=== PATIENT | female | born 1965 | race Caucasian/White ===

== ENCOUNTER 2019-03-28 12:44 | Inpatient (IN) | payer MEDICARE, OTHER ==
[~2019-03-28] VITALS: Ht 170.2 cm; Wt 63.5 kg
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
[2019-03-28 13:53] LABS: BASOPHILS # (AUTO) 0.1 /CMM (0.0-0.2); BASOPHILS % (AUTO) 0.6 % (0.0-2.0); EOSINOPHILS % (AUTO) 2.1 % (0.0-6.0); HEMATOCRIT 40 % (33-45); HEMOGLOBIN 13.4 g/dL (11.5-14.8); LYMPHOCYTES # (AUTO) 2.3 /CMM (0.8-4.8); LYMPHOCYTES % (AUTO) 20.8 % (20.0-44.0); MEAN CORPUSCULAR HGB CONC 33 g/dl (31.0-36.0); MEAN CORPUSCULAR VOLUME 85 fL (82-100); MONOCYTES # (AUTO) 0.7 /CMM (0.1-1.30); MONOCYTES % (AUTO) 6.6 % (2.0-12.0); NEUTROPHILS # (AUTO) 7.8 /CMM (1.8-8.9); NEUTROPHILS % (AUTO) 69.9 % (43.0-81.0); PLATELET COUNT (AUTO) 400 /CMM (150-450); WHITE BLOOD COUNT (AUTO) 11.2 K/uL (4.3-11.0)
[2019-03-28] MEDS ORDERED: HALOPERIDOL LACTATE INJ 5 MG/ML VIAL ONE (13:53)
[2019-03-28] MEDS ORDERED: LORAZEPAM INJ 2 MG/ML VIAL ONE (13:54)
[2019-03-28 13:58] LABS: CARBON DIOXIDE 26 mmol/L (21-32); CHLORIDE 101 mmol/L (98-107); CREATININE 0.7 mg/dL (0.6-1.3); GLUCOSE 111 mg/dL (74-106); SODIUM SERUM 137 mmol/L (136-145); UREA NITROGEN, BLOOD 13 mg/dL (7-18)
[2019-03-28] MEDS ORDERED: LORAZEPAM INJ 2 MG/ML VIAL IM ONE (14:00)
[2019-03-28] MEDS ORDERED: HALOPERIDOL LACTATE INJ 5 MG/ML VIAL IM ONE (14:00)
--- NOTE | 2019-03-28 14:00 | NUR ---
PT SCREAMING, MEDICATED PER PA'S ORDER, PT CINTIA WELL. WILL CONT TO MONITOR. EARNESTINE @ BS.
[2019-03-28 14:04] LABS: ALANINE AMINOTRANSFERASE 20 U/L (12-78); ALCOHOL, BLOOD < 3 mg/dL (0-0); ALKALINE PHOSPHATASE 84 U/L (46-116); ASPARTATE AMINOTRANSFERASE 22 U/L (15-37); BILIRUBIN,DIRECT 0.1 mg/dL (0.0-0.2); BILIRUBIN,TOTAL 0.6 mg/dL (0.2-1.0); TOTAL PROTEIN, SERUM 7.9 g/dL (6.4-8.2)
[2019-03-28 14:05] LABS: ACETAMINOPHEN 0 ug/ml (10-30); SALICYLATE 2.3 mg/dL (2.8-20.0)
[2019-03-28] MEDS ORDERED: POTASSIUM CHLORIDE 20 MEQ TAB.PRT.SR PO ONE ×2 (15:00→15:14)
[2019-03-28 15:18] LABS: APPEARANCE,URINE CLEAR (CLEAR); BILIRUBIN,URINE NEGATIVE (NEGATIVE); BLOOD, URINE NEGATIVE Ery/uL (NEGATIVE); COLOR,URINE YELLOW (YELLOW); KETONES,URINE NEGATIVE (NEGATIVE); LEUKOCYTE ESTERASE ,URINE SMALL (NEGATIVE); NITRITE, URINE POSITIVE (NEGATIVE); PROTEIN,URINE NEGATIVE (NEGATIVE); UGLUCOSE NEGATIVE (NEGATIVE); UROBILINOGEN,URINE 0.2 EU/dL (0.2)
[2019-03-28 15:50] LABS: BACTERIA,URINE Moderate /HPF (None Seen); RBC,URINE 0-2 /HPF (0-2); SQUAMOUS EPITHELIAL CELL,UR Few /HPF (None Seen)
[2019-03-28] MEDS ORDERED: CEPHALEXIN MONOHYDRATE 500 MG CAPSULE PO ONE ×2 (16:00→16:07)
--- NOTE | 2019-03-28 16:10 | NUR ---
MEDICATED PER PA'S ORDER, PT CINTIA WELL. PT CALM & COOPERATIVE & ANSWERING QUESTIONS. DENIES ANY DISCOMFORT @ THIS TIME & WILL CONT TO MONITOR.
--- NOTE | 2019-03-28 17:19 | NUR ---
REPORT GIVEN TO GAVIN GALAVIZ FOR VESTA.
[2019-03-28 17:47] VITALS: BP 129/93
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
[2019-03-28] MEDS ORDERED: BLOOD SUGAR DIAGNOSTIC 1 EACH STRIP IN ONE (18:30)
[2019-03-28] MEDS ORDERED: MAG HYDROX/AL HYDROX/SIMETH 30 ML UDC PO PRN (18:30)
--- NOTE | 2019-03-28 19:10 | NUR ---
RP GPS OPENING NOTE REPORT RECIEVED FROM GUILLAUME ALONSO. PATIENT IN BED IN NO APPARENT DISTRESS. PATIENT HAS BEEN UNCOOPERATINVE SINCE BEING ADMITTED. BREATHING EVEN AND UNLABORED. PATIENT APPEARS SLEEPY AROUSABLE TO VOICE AND TOUCH. DENIES SUICIDE IDEATION AND HOMICIDAL IDEATION AT THIS TIME. PT STATES,"I JUST WANT TO BE LEFT ALONE." BED DOWN LOCKED WILL CONTINUE TO MONITOR FOR SAFETY.
[2019-03-28 20:01] VITALS: BP 129/81
--- NOTE | 2019-03-28 20:20 | NUR ---
FAMILY NOTIFICATION ATTEMPTED TO CONTACT NUMBER LISTED ON FACE SHEET BUT NO ONE ANSWERED. [phone] ASKED PATIENT IF THERE WAS ANYONE SHE WANTED TO NOTIFY ABOUT HER ADMISSION TO GPS STATES "I DON'T HAVE ANYONE TO NOTIFY."
--- NOTE | 2019-03-29 05:49 | NUR ---
COMPLETION OF ADMISSION ASSESSMENT PATIENT AWAKE IN BED. PATIENT RESPONSIVE TO QUESTIONING BUT STILL HAS DEPRESSED WITHDRAWN MOOD. PATIENT DENIES HAVING ANY ALLERGIES TO FOOD OR DRUGS. PATIENT DENIES HAVING ANY DX MEDICAL PROBLEMS OR PSYCHIATRIC PROBLEMS PRIOR TO ADMISSION.
[2019-03-29 07:07] LABS: CHOLESTEROL 153 mg/dL (<200); HDL CHOLESTEROL 46 mg/dL (40-60); LDL 91 mg/dL (0-99); TRIGLYCERIDES 54 mg/dL (30-150)
[2019-03-29 08:00] VITALS: BP 102/69
--- NOTE | 2019-03-29 08:13 | NUR ---
Patient laughing uncontrollably for no apparent reason. Slightly withdrawn when asked about what is making her laugh, "you," she replies. Jewel Souza RN
[2019-03-29] MEDS: MAGNESIUM HYDROXIDE 30 ML UDC PO PRN (08:46)
[2019-03-29] MEDS: LORAZEPAM 0.5 MG TABLET PO PRN ×2 (08:46→16:58)
[2019-03-29] MEDS: ACETAMINOPHEN 325 MG TABLET PO PRN (08:46)
--- NOTE | 2019-03-29 11:50 | NUR ---
Patient says she agrees with any medication and says, "I feel like she wants to kill everyone for every little thing because of how it comes down." Jewel Souza RN
[2019-03-29] MEDS: ESCITALOPRAM OXALATE (10 MG) 10 MG TABLET PO SCH (12:30)
[2019-03-29] MEDS: risperiDONE 1 MG TABLET PO SCH ×2 (12:38→16:35)
--- NOTE | 2019-03-29 13:20 | NUR ---
INDIVIDUAL MEETING: SW attempted to engage pt with her discharge planning, per pt she stated that she did not want to return back to her former place of dwelling and informed SW that she did not want SW giving her landlord any information regarding her current hospitalization or mental state as she stated, "it is none of his business how I am doing and what I am being treated for here, he is just my landlord and I don't want to return to that place. I will go to a motel if I have to."
--- NOTE | 2019-03-29 13:32 | NUR ---
COLLATERAL CONTACT: SW contacted Joe Plascencia [phone] pts landlord/homeowner who stated he is not related to pt and informed SW that pt gave her 30 day notice on 03/28/19. Per Joe, he wishes to know pts condition and treatment before considering accepting her back in her home due to him having two young children. SW informed him that pt did not give SW permission to discuss any information with him as he is not pts family member or friend. Per Joe, due to this he will not allow pt to return to his home.
--- NOTE | 2019-03-29 14:35 | NUR ---
INITIAL DISCHARGE PLAN: Per pt, she stated that she does not want to return to [place] [address] [facility] [address]. Per pt, she can be discharged to a hotel. Pt will need assistance with board and care or independent living placement. SW will help form a safe and proper discharge in collaboration with .
--- NOTE | 2019-03-29 15:55 | NUR ---
Patient telling an unseen person in the room to stop humming. She says she is telling other people present that she needs to let go of 'goodbye' when expert medical writer questions who she is talking to. Jewel Souza RN
[2019-03-29 16:00] VITALS: BP 111/75
--- NOTE | 2019-03-29 19:15 | NUR ---
GPS RN NOTE PATIENT RECEIVED IN BED SLEEPING BUT EASILY AROUSABLE. NO S/S OF COMPLAINTS OF PAIN AT THIS TIME. PATIENT HAS NO PATIENT BREATHING EVEN AND UNALBORED. PATIENT ON ROOM AIR NO S/S OF RESP DISTRESS. PATIENT WITHDRAWN AND FLAT AT THIS TIME. PATIENT DENIES SI/ HI. PATIENT ABLE TO TURN HERSELF INDEPENDENTLY IN BED. PATIENT A CURRENT FALL RISK, FALL PRECAUTIONS IN PLACE. BED IN LOWEST LOCKED POSITION. PATIENT GIVEN INSTRUCTIONS ON USE OF CALL LIGHT AT THIS TIME. RN WILL CONTINUE TO MONITOR Q1 WITH HELP OF SURROUNDING STAFF.
[2019-03-29 20:00] VITALS: BP 115/80
[2019-03-29 20:13] VITALS: BP 115/80
[2019-03-30] MEDS: ZOLPIDEM TARTRATE 5 MG TABLET PO PRN (02:06)
[2019-03-30 06:46] LABS: CALCIUM, SERUM 8.4 mg/dL (8.5-10.1); CREATININE 0.7 mg/dL (0.6-1.3); POTASSIUM 3.8 mmol/L (3.5-5.1)
[2019-03-30 08:00] VITALS: BP 137/85
[2019-03-30] MEDS: risperiDONE 1 MG TABLET PO SCH ×3 (08:18→21:14)
[2019-03-30] MEDS: ESCITALOPRAM OXALATE (10 MG) 10 MG TABLET PO SCH (08:18)
[2019-03-30] MEDS: LORAZEPAM 0.5 MG TABLET PO PRN (14:33)
--- NOTE | 2019-03-30 14:35 | NUR ---
RN NOTE: PATIENT C/O ANXIETY. PRN ATIVAN GIVEN.
--- NOTE | 2019-03-30 15:36 | NUR ---
UR NOTE: ARI contacted [employer] [facility] [place] [phone] who stated pt has Auth:[id number] and requested daily clinicals be faxed.
[2019-03-30 16:00] VITALS: BP 114/77
[2019-03-30] MEDS ORDERED: CYCLOBENZAPRINE 10 MG TABLET PO PRN (16:00)
[2019-03-30 20:09] VITALS: BP 122/78
[2019-03-30] MEDS: MAGNESIUM HYDROXIDE 30 ML UDC PO PRN (21:19)
[2019-03-31] MEDS: LORAZEPAM 0.5 MG TABLET PO PRN ×2 (05:27→15:24)
[2019-03-31 08:00] VITALS: BP 139/91
[2019-03-31] MEDS: ESCITALOPRAM OXALATE (10 MG) 10 MG TABLET PO SCH (08:07)
[2019-03-31] MEDS: ACETAMINOPHEN 325 MG TABLET PO PRN (08:07)
[2019-03-31] MEDS: risperiDONE 1 MG TABLET PO SCH ×3 (08:07→20:30)
--- NOTE | 2019-03-31 08:10 | NUR ---
GPS/RN-NOTES PATIENT C/O HEAD ACHE AND REQUESTING FOR TYLENOL. TYLENOL 650MG P.O GIVEN PRN ORDER. WILL CONT. MONITORING.
--- NOTE | 2019-03-31 09:10 | NUR ---
GPS/RN-NOTES PATIENT SLEEPING,EASILY AROUSAL,NO ACUTE DISTRESS NOTED.
[2019-03-31 11:31] LABS: BASOPHILS % (AUTO) 0.4 % (0.0-2.0); EOSINOPHILS % (AUTO) 3.9 % (0.0-6.0); HEMATOCRIT 40 % (33-45); HEMOGLOBIN 13.5 g/dL (11.5-14.8); LYMPHOCYTES # (AUTO) 1.8 /CMM (0.8-4.8); LYMPHOCYTES % (AUTO) 35.8 % (20.0-44.0); MEAN CORPUSCULAR HGB CONC 34 g/dl (31.0-36.0); MEAN CORPUSCULAR VOLUME 85 fL (82-100); MONOCYTES # (AUTO) 0.3 /CMM (0.1-1.30); MONOCYTES % (AUTO) 6.6 % (2.0-12.0); NEUTROPHILS # (AUTO) 2.7 /CMM (1.8-8.9); NEUTROPHILS % (AUTO) 53.3 % (43.0-81.0); PLATELET COUNT (AUTO) 354 /CMM (150-450); RED BLOOD CELL COUNT(AUTO) 4.67 MIL/uL (4.0-5.2)
[2019-03-31] MEDS: SULFAMETH/TRIMETH 800/160 MG 1 UDTAB TABLET PO SCH ×2 (11:41→20:30)
[2019-03-31 11:53] LABS: ALBUMIN 3.6 g/dL (3.4-5.0); BILIRUBIN,TOTAL 0.2 mg/dL (0.2-1.0); CALCIUM, SERUM 8.5 mg/dL (8.5-10.1); CREATININE 0.8 mg/dL (0.6-1.3); POTASSIUM 3.9 mmol/L (3.5-5.1); TOTAL PROTEIN, SERUM 7.2 g/dL (6.4-8.2)
--- NOTE | 2019-03-31 15:26 | NUR ---
GPS/RN-NOTES PATIENT STATED "I'M HEARING VOICES,I NEED MEDICATIONS TO TO STOP THIS". ATIVAN 1MG P.O GIVEN PRN ORDER. WILL CONT. MONITORING FOR SAFETY AND BEHAVIOR.
[2019-03-31 16:00] VITALS: BP 122/90
[2019-04-01] MEDS: LORAZEPAM 1 MG TABLET PO PRN ×3 (04:14→16:33)
--- NOTE | 2019-04-01 04:14 | NUR ---
GPS RN NOTE, PATIENT HAS A COMPLAINT OF FEELING ANXIOUS AND IS REQUESTING ATIVAN AT THIS TIME. PATIENT VITAL SIGNS ARE STABLE. GAVE ATIVAN PO Q8HR PRN ORDERED. WILL REASSESS FOR ANXIETY AND I WILL CONTINUE TO MONITOR THIS PATIENT.
[2019-04-01 08:00] VITALS: BP 123/89
[2019-04-01] MEDS: risperiDONE 1 MG TABLET PO SCH ×3 (08:19→20:02)
[2019-04-01] MEDS: ESCITALOPRAM OXALATE (10 MG) 10 MG TABLET PO SCH (08:19)
[2019-04-01] MEDS: SULFAMETH/TRIMETH 800/160 MG 1 UDTAB TABLET PO SCH ×2 (08:19→20:02)
--- NOTE | 2019-04-01 10:32 | NUR ---
RN NOTE: PATIENT STATES THAT SHE IS HAVING AUDITORY HALLUCINATIONS TELLING HER TO HURT OTHERS BUT STATES THAT SHE IS FIGHTING THE VOICE AND WILL NOT HURT ANYONE. PATIENT ALSO STATES THAT THERE IS NO SPECIFIC PLAN TO WHAT THE VOICES ARE COMMANDING HER. WILL CONTINUE TO MONITOR PATIENT FOR SAFETY AND BEHAVIOR PER GPS PROTOCOL.
[2019-04-01] MEDS: ACETAMINOPHEN 325 MG TABLET PO PRN (12:04)
--- NOTE | 2019-04-01 12:04 | NUR ---
RN NOTE: PATIENT C/O RESTLESSNESS AND ANXIETY. PRN ATIVAN AND TYLENOL GIVEN.
--- NOTE | 2019-04-01 15:49 | NUR ---
RN NOTE: PATIENT IS HAVING ONGOING AUDITORY HALLUCINATIONS TELLING HER TO "HURT HER LANDLORD". CONTACTED DR LOVE WITH ORDERS TO CHANGE THE FREQUENCY FOR ATIVAN FOR Q4 HOURS PRN.
[2019-04-01 16:00] VITALS: BP 130/93
--- NOTE | 2019-04-01 16:33 | NUR ---
RN NOTE: PATIENT C/O ANXIETY. PRN ATIVAN GIVEN.
[2019-04-01] MEDS: MAGNESIUM HYDROXIDE 30 ML UDC PO PRN (20:02)
--- NOTE | 2019-04-01 20:06 | NUR ---
GPS RN NOTES: PT COMPLAINED SHE IS CONSTIPATED AND REQUESTED FOR MOM. ADMINISTERED MOM 30ML PO TO PT. TOLERATED WELL CONT TO MONITOR.
[2019-04-02 03:50] VITALS: BP 129/90
[2019-04-02] MEDS: LORAZEPAM 1 MG TABLET PO PRN ×4 (03:52→16:06)
--- NOTE | 2019-04-02 03:55 | NUR ---
GPS/RN-NOTES PATIENT STATED "I'M HEARING VOICES,I NEED MEDICATIONS TO TO STOP THIS". ASKED THE ESIDENT WHAT HTE VOICES ARE SAYING. PATIENT STATED, "THEY ARE JUST VOICES" ATIVAN 1MG P.O GIVEN PRN ORDER. WILL CONT. MONITORING FOR SAFETY AND BEHAVIOR.
[2019-04-02 08:00] VITALS: BP 130/89
[2019-04-02] MEDS: risperiDONE 1 MG TABLET PO SCH ×2 (08:00→21:09)
[2019-04-02] MEDS: ESCITALOPRAM OXALATE (10 MG) 10 MG TABLET PO SCH (08:00)
[2019-04-02] MEDS: SULFAMETH/TRIMETH 800/160 MG 1 UDTAB TABLET PO SCH ×2 (08:01→21:08)
--- NOTE | 2019-04-02 08:01 | NUR ---
RN NOTE: PATIENT C/O ANXIETY, PRN ATIVAN GIVEN.
--- NOTE | 2019-04-02 09:00 | NUR ---
PSYCH & SW MEETING: SW and psychiatrist spoke with pt regarding her discharge plan. Pt stated that she wishes to return to her home in [place], Patient signed consent and gave SW permission to speak to [facility] regarding her current mental health treatment.
--- NOTE | 2019-04-02 09:05 | NUR ---
UR NOTE: ARI faxed clinicals to [employer] [facility] [place] [phone] Auth:[id number].
--- NOTE | 2019-04-02 09:31 | NUR ---
COLLATERAL CONTACT: SW contacted Joe Plascencia [phone] pts landlord/homeowner and left a voicemail stating pt wishes to return back to his home and also informed him that pt signed a consent form to share information with him.
--- NOTE | 2019-04-02 10:15 | NUR ---
COLLATERAL CONTACT: ARI contacted Joe Plascencia [phone] pts landlord/homeowner and discussed pts treatment and discharge plan. ARI informed him pt wishes to return to his home and has an anticipated discharge for Tuesday04/04/19. ARI provided Joe with pts current diagnosis and also provided him with pts current medications. Joe requested pt be recommended to see a mental health provider weekly for the next 2 months if not he would not allow for her to return. ARI informed him that referrals will be given to pt and an after care appointment with a psychiatrist will be scheduled within 7 days of her discharge, however, informed him that hospital staff could not force pt to see a mental health provider weekly and that he needed to discuss his conditions to return with her personally as he is her landlord. Joe stated that he was not going to have that conversation with her as it was the hospitals responsibility to discuss pts follow up treatment with her. ARI reiterated to Joe that as his landlord he needed to have a discussion with her regarding her mental health treatment once discharged from the hospital as he is her landlord and her lease is contingent on her mental health treatment. Addendum: 04/02/19 at 1036 by ADIN CHAPMAN ERROR NOTE
--- NOTE | 2019-04-02 10:36 | NUR ---
COLLATERAL CONTACT: ARI contacted Joe Plascencia [phone] pts landlord/homeowner and discussed pts treatment and discharge plan. ARI informed him pt wishes to return to his home and has an anticipated discharge for Tuesday04/04/19. ARI provided Joe with pts current diagnosis and also provided him with pts current medications. Joe requested pt be recommended to see a mental health provider weekly for the next 2 months if not he would not allow for her to return. ARI informed him that referrals will be given to pt and an after care appointment with a psychiatrist will be scheduled within 7 days of her discharge, however, informed him that hospital staff could not force pt to see a mental health provider weekly and that he needed to discuss his conditions to return with her personally as he is her landlord. Joe stated that he was not going to have that conversation with her as it was the hospitals responsibility to discuss pts follow up treatment with her. ARI reiterated to Joe that as her landlord he needed to have a discussion with her regarding her mental health treatment once discharged from the hospital as he is her landlord and her lease is contingent on her mental health treatment. ARI informed him that she would have an intervention with him and discuss the importance of following up with her mental health machine installer once discharged. Joe agreed and ARI transferred the call to nurses station so he would speak with pt.
--- NOTE | 2019-04-02 11:00 | NUR ---
INDIVIDUAL MEETING/ SUBSTANCE ABUSE INTERVENTION: SW discussed pts current substance use with pt and provided intervention, pt states that she has a lot of grief that has turned into anger and she uses drugs every other day as a way to cope with her pain. Pt states that she spoke with Joe her landlord who is being very unrealistic but states that he is willing to accept her back as long as she has a follow up appointment with a psychiatrist. Pt states that she will cooperate with her treatment and discharge and also asked SW to contact her mother Kimberlee Schmidt who lives in [facility] Address: [address] [place] [address] [phone] to inform her pt is currently hospitalized.
--- NOTE | 2019-04-02 13:35 | NUR ---
UR NOTE: ARI received a call from [place]-aftercare coordinator at [facility] [phone] [phone] stating that she will be providing pt with aftercare appointments. ARI informed her that pt will be discharged on Tuesday04/04/19. [place] stated that she would call ARI as soon as the appointments have been confirmed.
--- NOTE | 2019-04-02 14:24 | NUR ---
FAMILY CONTACT: Per pts request, ARI contacted [facility] Address: [address], [place] [address] and spoke with Marybeth, safety administrator who will give pts mother Kimberlee Schmidt the alejandra that pt is currently hospitalized. ARI provided Marybeth with ARI's contact information.
[2019-04-02 16:00] VITALS: BP 150/99
[2019-04-02] MEDS: ACETAMINOPHEN 325 MG TABLET PO PRN (16:06)
--- NOTE | 2019-04-02 16:10 | NUR ---
RN NOTE: PATIENT COMPLAINING OF A HEADACHE AND ANXIETY. PRN ATIVAN AND TYLENOL GIVEN.
[2019-04-02] MEDS: MAGNESIUM HYDROXIDE 30 ML UDC PO PRN (18:52)
--- NOTE | 2019-04-02 18:52 | NUR ---
RN NOTE: PATIENT C/O CONSTIPATION. PRN MOM GIVEN.
[2019-04-02 20:46] VITALS: BP 127/91
[2019-04-02] MEDS: ZOLPIDEM TARTRATE 5 MG TABLET PO PRN (21:35)
--- NOTE | 2019-04-02 21:35 | NUR ---
GPS/RN NOTE: REQUESTED FOR SLEEPING PILL, AMBIEN 5 MG TAB 1 PO GIVEN.
[2019-04-03] MEDS: LORAZEPAM 1 MG TABLET PO PRN ×4 (03:45→16:55)
--- NOTE | 2019-04-03 03:45 | NUR ---
GPS/RN NOTE: PATIENT CALLED AND REPORTED THAT SHE IS HEARING NOISY VOICES INSIDE HER HEAD, FEELING ANXIOUS AND WORRIED, FACE GRIMACING. ATIVAN 1 MG TAB PO GIVEN.
[2019-04-03 08:00] VITALS: BP 121/81
[2019-04-03] MEDS: ESCITALOPRAM OXALATE (10 MG) 10 MG TABLET PO SCH (08:16)
[2019-04-03] MEDS: SULFAMETH/TRIMETH 800/160 MG 1 UDTAB TABLET PO SCH ×2 (08:17→20:40)
[2019-04-03] MEDS: risperiDONE 1 MG TABLET PO SCH ×2 (08:17→20:40)
--- NOTE | 2019-04-03 08:25 | NUR ---
GAVIN NOTE: PATIENT C/O ANXIETY. PRN ATIVAN GIVEN. Addendum: 04/03/19 at 1233 by JAMARI GARCIA RN PATIENT C/O ANXIETY, PRN ATIVAN GIVEN Addendum: 04/03/19 at 1243 by JAMARI GARCIA RN PATIENT C/O HEADACHE, PRN TYLENOL GIVEN Addendum: 04/03/19 at 1656 by JAMARI GARCIA RN PATIENT C/O ANXIETY AND CONSTIPATION. PRN ATIVAN AND MOM GIVEN
--- NOTE | 2019-04-03 09:16 | NUR ---
UR NOTE: ARI faxed clinicals to [facility] [employer] [facility] [phone] Auth:[id number].
--- NOTE | 2019-04-03 10:33 | NUR ---
UR NOTE: ARI contacted [place]-aftercare coordinator at [facility] [phone] [phone] for follow-up on aftercare appointments for pt. [place] stated that she would contact ARI once appointments have been confirmed.
[2019-04-03] MEDS: ACETAMINOPHEN 325 MG TABLET PO PRN (12:43)
[2019-04-03 16:00] VITALS: BP 117/76
--- NOTE | 2019-04-03 16:13 | NUR ---
UR NOTE: SW received a call from [place]-aftercare coordinator at [facility] [phone] providing SW with a psychotherapy referral for pt with Varun Dominguez LCSW Address: [address] [place] [address] . [place] stated that she will call SW tomorrow to confirm psychiatrist appointment.
[2019-04-03] MEDS: MAGNESIUM HYDROXIDE 30 ML UDC PO PRN (16:54)
--- NOTE | 2019-04-03 19:40 | NUR ---
GPS/RN NOTE: PATIENT AWAKE, ALERT, AMBULATING INSIDE HER ROOM, CALM, COOPERATIVE, DENIES PAIN AT THIS TIME. WILL CONTINUE TO MONITOR FOR SAFETY.
[2019-04-03 19:56] VITALS: BP 130/89
[2019-04-03] MEDS: ZOLPIDEM TARTRATE 5 MG TABLET PO PRN (20:40)
--- NOTE | 2019-04-03 20:41 | NUR ---
GPS/RN NOTE: AMBIEN 5 MG TAB PO GIVEN FOR SLEEP PER PATIENT'S REQUEST.
[2019-04-04] MEDS: LORAZEPAM 1 MG TABLET PO PRN ×2 (03:16→08:23)
--- NOTE | 2019-04-04 03:17 | NUR ---
GPS/RN NOTE: AWAKE, FEELING ANXIOUS, AND HEARING VOICES TELLING HER NOT TO HURT ANYBODY. ATIVAN 1 MG TAB PO GIVEN.
[2019-04-04 08:00] VITALS: BP 132/85
[2019-04-04] MEDS: ESCITALOPRAM OXALATE (10 MG) 10 MG TABLET PO SCH (08:23)
[2019-04-04] MEDS: SULFAMETH/TRIMETH 800/160 MG 1 UDTAB TABLET PO SCH (08:23)
[2019-04-04] MEDS: risperiDONE 1 MG TABLET PO SCH (08:23)
[2019-04-04] MEDS: ACETAMINOPHEN 325 MG TABLET PO PRN (08:23)
--- NOTE | 2019-04-04 08:23 | NUR ---
GPS/RN NOTE: PATIENT FEELING ANXIOUS, RESTLESS ATIVAN 1 MG TAB PO GIVEN.
--- NOTE | 2019-04-04 09:16 | NUR ---
DR. GOINS GAVE AN ORDER TO D/C HOLD AND D/C HOME AND TO FOLLOW UP WITH PSYCH AND MEDICAL DOCTORS.
--- NOTE | 2019-04-04 09:55 | NUR ---
DISCHARGE NOTE: Pt will be discharged at 1:00pm via [facility] home to [address] [facility] [address]. Pts mood is euthymic with congruent affect. Pt denied visual/auditory hallucinations and denied suicidal/homicidal ideation. Patient was provided referrals to address her substance use. Patient was referred to the [facility] [address] [place] [address] / and was encouraged to present at 9am on , April 05, 2019. Additional resources included [facility] [address] [place] [address] [address] [facility] [address] [place] [address] . Pt has a follow up appointment with Psychiatrist: Dr. Hinojosa [address] [address]. on 04/12/19 at 5:00pm. Pt will also follow up with Psychotherapy: Varun Dominguez LCSW Address: [address] [place] [address] . Pt will call to schedule an appointment. Pt will also follow up with [employer]: Dr. Sharan Franco Address: [address] [place] [address] . The multidisciplinary exitcare form was done, printed, signed, and given to the patient.
--- NOTE | 2019-04-04 11:18 | NUR ---
GPS JACKSPOOLER NOT: PATIENT IS A 53 Y/O FEMALE DISCHARGED HOME TO [id number] [place], [place] [id number] VIA [facility] NUMBER [id number] PATIENT IS IN STABLE CONDITION. VSS. NO ACUTE DISTRESS NOTED. NO COMPLAINTS. COMPLIANT WITH MEDICATION MANAGEMENT. COOPERATIVE WITH PLAN OF CARE. PSYCHIATRIC TREATMENT PLANS MET. MEDICAL TREATMENT PLANS DEFERRED FOR CONTINUAL MONITORING. DENIES SI/HI VAH AT THE TIME OF DISCHARGE. SKIN CHECK DONE AND INTACT EDUCATED PATIENT ABOUT AFTERCARE WITH COPY PROVIDED. RETURNED PERSONAL BELONGINGS AND VALUABLES TO PATIENT. PRESCRIPTION GIVEN AND EXPLAIN PT VERBALIZED UNDERSTANDING , PSYCHIATRIC DISCHARGE ORDERS PLACED .EXIT CARE DONE PRINTED SIGNED AND GIVEN TO PT, DISCHARGE PAPERWORK SIGNED. FOR FOLLOW UP WITH PSYCHIATRIST AND DISTRICT ADMINISTRATIVE ASSISTANT WITHIN 1 WEEK. PATIENT LEFT THE [facility] GPS VIA .
--- NOTE | 2019-04-06 09:54 | NUR ---
UR Note: ARI faxed a discharge clinical to Nichole (Emy Burger) to the fax number: [phone].
== END 2019-04-04 11:15 | disposition home or self-care (01) | DRG 881 ==
LOC: ER 12:51 → GPS 16:16
PROVIDERS: ADMIT Psychiatry & Neurology Psychiatry; ATTEND Registered Nurse
DX: F32.9 Major depressive disorder, single episode, unspecified (principal); N39.0 Urinary tract infection, site not specified; R45.851 Suicidal ideations; F29 Unspecified psychosis not due to a substance or known physiological condition; F41.9 Anxiety disorder, unspecified; F15.10 Other stimulant abuse, uncomplicated; E87.6 Hypokalemia; Z81.8 Family history of other mental and behavioral disorders
CPT/HCPCS: 36415; 80048-TC; 80053-TC; 80061-TC; 80076-TC; 80305; 81000-TC; 82962-TC; 83735-TC; 85025-TC; 87081-TC; 87086-TC; 87186-TC; G0480; J1630; J2060